=== PATIENT | female | born 1980 | race Caucasian/White ===

== ENCOUNTER 2017-08-18 19:00 | Inpatient (IN) | payer SELFPAY ==
[~2017-08-18] VITALS: Ht 165.1 cm; Wt 68.0 kg
[2017-08-18] MEDS ORDERED: LACTATED RINGERS 1,000 ML IV ONE (19:59)
[2017-08-18] MEDS ORDERED: PIPERACILLIN SODIUM/TAZOBACTAM 4.5 GM in NS (IVPB) 100 ML IV ONE (20:00)
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
[2017-08-18] MEDS ORDERED: IOHEXOL 350 MG/ML 100 ML (OMNIPAQUE 350) VIAL IV ONE (20:15)
[2017-08-18] MEDS ORDERED: NS 100 ML (IVPB) BAG IV ONE (20:15)
[2017-08-18 20:26] LABS: BASOPHILS # (AUTO) 0.1 10^3/uL (0.0-0.1); BASOPHILS % (AUTO) 1 % (0-10); EOSINOPHILS # (AUTO) 0.3 10^3/uL (0.0-0.3); EOSINOPHILS % (AUTO) 2 % (0-10); HEMATOCRIT 34 % (35-52); LYMPHOCYTES # (AUTO) 1.6 X 10^3 (1.0-4.0); LYMPHOCYTES % (AUTO) 9 % (12-44); MEAN CORPUSCULAR HEMOGLOBIN 31 PG (25-34); MEAN CORPUSCULAR HGB CONC 35 G/DL (32-36); MEAN CORPUSCULAR VOLUME 89 FL (80-99); MEAN PLATELET VOLUME 10.1 FL (7.4-10.4); MONOCYTES # (AUTO) 1.4 X 10^3 (0.0-1.0); MONOCYTES % (AUTO) 8 % (0-12); NEUTROPHILS # (AUTO) 13.8 X 10^3 (1.8-7.8); NEUTROPHILS % (AUTO) 81 % (42-75); PLATELET COUNT 288 10^3/uL (130-400); RED BLOOD COUNT 3.82 10^6/uL (4.35-5.85); RED CELL DISTRIBUTION WIDTH 13.5 % (10.0-14.5)
[2017-08-18 20:32] LABS: BILIRUBIN,URINE NEGATIVE (NEGATIVE); CLARITY,URINE CLEAR; COLOR,URINE YELLOW; GLUCOSE, URINE (UA) NEGATIVE (NEGATIVE); KETONES,URINE NEGATIVE (NEGATIVE); LEUKOCYTE ESTERASE ,URINE 1+ (NEGATIVE); NITRITE,URINE NEGATIVE (NEGATIVE); PH,URINE 8 (5-9); PROTEIN,URINE 1+ (NEGATIVE); UROBILINOGEN,URINE NORMAL (NORMAL)
[2017-08-18 20:36] LABS: INR 1.1 (0.8-1.4)
[2017-08-18 20:41] LABS: BACTERIA,URINE FEW /HPF; MAGNESIUM 1.6 MG/DL (1.8-2.4); PHOSPHORUS 2.3 MG/DL (2.3-4.7); RBC,URINE RARE /HPF
[2017-08-18 20:42] LABS: ALANINE AMINOTRANSFERASE 57 U/L (0-55); ALBUMIN 2.9 GM/DL (3.2-4.5); ALKALINE PHOSPHATASE 244 U/L (40-136); BILIRUBIN,TOTAL 0.3 MG/DL (0.1-1.0); BUN/CREATININE RATIO 10; CALCIUM 8.6 MG/DL (8.5-10.1); CARBON DIOXIDE 24 MMOL/L (21-32); CHLORIDE 106 MMOL/L (98-107); CREATININE SERUM 0.77 MG/DL (0.60-1.30); GFR ESTIMATED > 60; GLUCOSE 110 MG/DL (70-105); HCG,QUALITATIVE URINE NEGATIVE (NEGATIVE); POTASSIUM 3.7 MMOL/L (3.6-5.0); SODIUM 139 MMOL/L (135-145); TOTAL PROTEIN 5.9 GM/DL (6.4-8.2)
[2017-08-18 20:46] LABS: BAND NEUTROPHILS 15 %; BASOPHILS % (MANUAL) 0 %; EOSINOPHILS % (MANUAL) 1 %; LYMPHOCYTES % (MANUAL) 11 %; MONOCYTES % (MANUAL) 9 %; NEUTROPHILS % (MANUAL) 64 %; RBC MORPH NORMAL
[2017-08-18 20:53] LABS: BARBITURATE SCREEN URINE POSITIVE (NEGATIVE); CANNABINOID SCREEN, URINE POSITIVE (NEGATIVE); COCAINE SCREEN URINE POSITIVE (NEGATIVE)
[2017-08-18 20:54] LABS: AMPHETAMINE SCREEN, URINE NEGATIVE (NEGATIVE); BENZODIAZEPINES SCREEN URINE NEGATIVE (NEGATIVE); METHADONE STAT NEGATIVE (NEGATIVE); METHAMPHETAMINE SCREEN URINE S NEGATIVE (NEGATIVE); OPIATE SCREEN URINE NEGATIVE (NEGATIVE); OXYCODONE STAT NEGATIVE (NEGATIVE); PROPOXYPHENE STAT NEGATIVE (NEGATIVE); TRICYCLIC ANTIDEPRESSANTS SCRE NEGATIVE (NEGATIVE)
[2017-08-18] MEDS ORDERED: NS IV 500 ML 500 ML IV ONE (21:16)
--- NOTE | 2017-08-18 21:26 | Diagnostic Imaging Report ---
PROCEDURE: CT abdomen and pelvis with and without contrast. TECHNIQUE: Precontrast acquisitions were acquired through the abdomen and pelvis. Multiple contiguous axial images were obtained through the abdomen and pelvis after the administration of intravenous contrast. INDICATION: Anterior and posterior lower abdominal pain. CORRELATION STUDY: None FINDINGS: There is the presence of small to moderate bilateral pleural effusions, right greater than left. On the right, maximum thickness of nearly 3 cm. Associated atelectasis of the lung bases. Partial visualization of the bilateral breast implants. Heart size appears relatively normal. There is overall somewhat heterogeneous appearance about the liver parenchyma, nonspecific, could be some fatty infiltration versus edema. Borderline liver enlargement. Spleen, borderline prominent, as well. The bilateral adrenal glands, pancreas and abdominal aorta are unremarkable. Gallbladder is present. There is the presence of gallbladder wall thickening and edema. Biliary tree appears relatively unremarkable. Left kidney demonstrates nonobstructing left renal stone. While the distal ureter is not visualized, there is no evidence for overt hydronephrosis. There is a rather marked abnormal appearance about the right kidney which is enlarged and demonstrates multifocal areas of abnormal striated and diminished enhancement. This is most pronounced along the anterior superior pole but also involves portions of inferior pole, as well. Proximal collecting system appears symmetric to the right. The distal right ureter is not visualized but likely without significant obstruction. Gastrointestinal tract with moderate severity fecal retention. No definitive obstruction. There is the presence of pelvic fluid and slight haziness about the mesentery. The appendix is not definitely visualized, however, no findings to suggest acute appendicitis. Urinary bladder unremarkable. The uterus is relatively unremarkable. Some vascular engorgement noted around the uterus and cervix. IMPRESSION: 1. Marked abnormal appearance about the right kidney. Imaging features favor probable rather pronounced right pyelonephritis. No definitive obstructive uropathy. 2. Nonobstructing left renal stone. 3. Abnormal pericholecystic fluid with edematous changes of the gallbladder wall. This may be reactive owing to the adjacent presumed inflammatory/infectious changes of the right kidney. Cholecystitis is not excluded. 4. Bilateral pleural effusions of moderate size on the right, slightly smaller on the left. 5. Borderline hepatosplenomegaly. There may be some fatty infiltration versus edematous engorgement about the liver parenchyma. Dictated by: Dictated on workstation # [id number]
[2017-08-18] MEDS ORDERED: MAGNESIUM 1 GM/100 ML IVPB 100 ML IV ONE (21:30)
--- NOTE | 2017-08-18 21:51 | Diagnostic Imaging Report ---
INDICATION: Persistent shortness of air, fever, swelling.. TECHNIQUE: Two view chest at 9:22 PM CORRELATION STUDY: None FINDINGS: The heart size, mediastinal configuration and pulmonary vasculature are within normal limits. Associated atelectasis and/or infiltrate of the lung bases. Visualized osseous structures are unremarkable. IMPRESSION: 1. Borderline heart size. Bilateral perihilar infiltrates versus edema. Bilateral pleural effusions, right greater than left, with associated atelectasis and/or infiltrate of the lung bases. Dictated by: Dictated on workstation # [id number]
[2017-08-18 22:20] VITALS: BP 117/68
[2017-08-18] MEDS ORDERED: ONDANSETRON 4 MG/2 ML (SDV) Z0FRAN IV PRN (23:00)
[2017-08-18] MEDS: metroNIDAZOLE 500 MG/100 ML IVPB (PRE-MIX) IV SCH (23:10)
[2017-08-18] MEDS: 1/2 NS W/KCL 20 MEQ/L 1,000 ML IV SCH (23:10)
[2017-08-19] VITALS (7 sets, daily range): BP systolic 11–122; BP diastolic 59–87
[2017-08-19] MEDS: fentaNYL INJECTION 100 MCG/2 ML AMP IV PRN ×2 (00:21→05:31)
[2017-08-19] MEDS: PIPERACILLIN SODIUM/TAZOBACTAM 4.5 GM in NS (IVPB) 100 ML IV SCH ×3 (01:02→16:43)
[2017-08-19] MEDS: metroNIDAZOLE 500 MG/100 ML IVPB (PRE-MIX) IV SCH (05:31)
[2017-08-19] MEDS: 1/2 NS W/KCL 20 MEQ/L 1,000 ML IV SCH ×4 (05:31→23:40)
[2017-08-19 05:54] LABS: BASOPHILS # (AUTO) 0.1 10^3/uL (0.0-0.1); BASOPHILS % (AUTO) 1 % (0-10); EOSINOPHILS # (AUTO) 0.4 10^3/uL (0.0-0.3); EOSINOPHILS % (AUTO) 3 % (0-10); HEMATOCRIT 32 % (35-52); HEMOGLOBIN 11.1 G/DL (11.5-16.0); LYMPHOCYTES # (AUTO) 2.4 X 10^3 (1.0-4.0); LYMPHOCYTES % (AUTO) 19 % (12-44); MEAN CORPUSCULAR HEMOGLOBIN 31 PG (25-34); MEAN CORPUSCULAR HGB CONC 35 G/DL (32-36); MEAN CORPUSCULAR VOLUME 90 FL (80-99); MONOCYTES # (AUTO) 1.3 X 10^3 (0.0-1.0); MONOCYTES % (AUTO) 10 % (0-12); NEUTROPHILS # (AUTO) 8.6 X 10^3 (1.8-7.8); NEUTROPHILS % (AUTO) 67 % (42-75); PLATELET COUNT 270 10^3/uL (130-400); RED BLOOD COUNT 3.54 10^6/uL (4.35-5.85); RED CELL DISTRIBUTION WIDTH 13.5 % (10.0-14.5); WHITE BLOOD COUNT 12.8 10^3/uL (4.3-11.0)
[2017-08-19 06:13] LABS: ALANINE AMINOTRANSFERASE 43 U/L (0-55); ALBUMIN 2.4 GM/DL (3.2-4.5); ALKALINE PHOSPHATASE 200 U/L (40-136); BILIRUBIN,TOTAL 0.4 MG/DL (0.1-1.0); BUN/CREATININE RATIO 8; CALCIUM 7.9 MG/DL (8.5-10.1); CARBON DIOXIDE 22 MMOL/L (21-32); CHLORIDE 107 MMOL/L (98-107); CREATININE SERUM 0.74 MG/DL (0.60-1.30); GFR ESTIMATED > 60; GLUCOSE 95 MG/DL (70-105); MAGNESIUM 1.6 MG/DL (1.8-2.4); POTASSIUM 4.4 MMOL/L (3.6-5.0); SODIUM 138 MMOL/L (135-145)
[2017-08-19] MEDS ORDERED: INFLUENZA TRIvalent 2017-2018 0.5 ML/45 MCG SYR IM ONE (07:15)
--- NOTE | 2017-08-19 09:13 | Diagnostic Imaging Report ---
PROCEDURE: US abdomen complete. TECHNIQUE: Multiple real-time grayscale images were obtained over the abdomen in various projections. INDICATION: Right upper quadrant pain. The liver is normal in size at 17.7 cm. No discrete liver mass is identified. The portal vein is patent and demonstrates normal direction of flow. The gallbladder is without stones or sludge, however, gallbladder wall is thickened up to 7 mm. Minimal pericholecystic fluid is present. No biliary ductal dilatation is identified. Pancreas is unremarkable. Spleen is normal in size. Aorta and IVC are unremarkable. The right kidney is 13.8 cm in length the left kidney 11.3 cm in length. There is an approximately 12 mm cyst in the midportion of the right kidney. Right renal cortex does appear to be slightly echogenic. No calculi or hydronephrosis is seen. Note is made of bilateral pleural effusions. No ascites is seen. IMPRESSION: 1. Bilateral pleural effusions. 2. Thickwalled gallbladder without evidence of stones or sludge. Acalculous cholecystitis cannot be entirely excluded. Other etiologies of gallbladder wall thickening such as hepatic dysfunction could produce this appearance. 3. Small right renal cyst. There is also increased cortical echogenicity of the right kidney, perhaps owing to medical renal disease. Dictated by: Dictated on workstation # [id number]
--- NOTE | 2017-08-19 09:38 | History & Physical-Hospitalist ---
HPI History of Present Illness: HPI/Chief Complaint Pt is a 37yoCF who was recently admitted to a hospital in [place] for bacteremia from a UTI presented to the ER with continued complaints of not feeling well. She reports she was abruptly discharged from the hospital there after an incident with a staff member. She was prescribed Cipro on discharge () and drove state to [place] for evaluation in the ER. She continued to have fevers and abd pain on the drive. She also complains of a cough that is non productive. Total her illness has been going on for roughly 2 weeks. When asked to point to her pain she points to her RUQ but states it is all over. It is worse with BM and improved only by pain medicine. Source: patient Date Seen 08/19/17 Time Seen by Provider: 09:00 Attending Physician Howie Mtz MD PCP No,Local Physician Referring Physician Date of Admission Aug 18, 2017 at 9:57 pm Home Medications & Allergies Home Medications Reviewed patient Home Medication Reconciliation Form Allergies Allergies Coded Allergies No Known Drug Allergies (Unverified08/18/17) Past Ptyygai-Llaudn-Feahtz Hx Patient Social History Marrital Status: single Alcohol Use: Denies Use Recreational Drug Use: Yes (marijuana laced with cocaine) Smoking Status: Current Everyday Smoker Cigaretts per day: 20 Type Used: Cigarettes Physical Abuse Screen: No Sexual Abuse: No Recent Foreign Travel: No Contact w/other who traveled: No Recent Hopitalizations: Yes (dc'd 08/17/17 for sepsis) Recent Infectious Disease Expo: No Seasonal Allergies Seasonal Allergies: No Surgeries Yes Orthopedic (tib/fib fracture) Respiratory Yes ("bronchitis") Currently Using CPAP: No Currently Using BIPAP: No Cardiovascular No Neurological No Reproductive System Last Menstrual Period: Aug 10, 2017 Genitourinary Yes Kidney Stones Gastrointestinal Yes Gall Bladder Disease (not formally diagnosed- reported by patient) Musculoskeletal Yes Fractures Endocrine History of Endocrine Disorders: No HEENT History of HEENT Disorders: No Cancer No Psychosocial History of Psychiatric Problem: No Integumentary History of Skin or Integumenta: No Family Medical History Family Hx: Alcoholism 19 FATHER G8 SISTER Asthma 19 FATHER Hypertension 19 FATHER Respiratory disorder 19 FATHER Review of Systems Constitutional: fever, weakness EENTM: No blurred vision, No double vision Respiratory: cough, No hemoptysis, No phlegm, No short of breath Gastrointestinal: abdominal pain (RUQ), No constipation, No nausea, No vomiting Genitourinary: decreased output (while admitted in [facility]- resolved with Lasix) , No dysuria, No hematuria, No hesitancy, No incontinence Musculoskeletal: no symptoms reported Skin: no symptoms reported Psychiatric/Neurological: No Symptoms Reported Physical Exam Physical Exam Vital Signs Vital Signs - First Documented 08/18/17 08/18/17 19:15 22:15 Temp 99.7 Pulse 134 Resp 20 B/P (MAP) 143/106 (118) Pulse Ox 98 O2 Delivery Room Air Capillary Refill : Less Than 3 Seconds General Appearance: No Apparent Distress, WD/WN HEENT: PERRL/EOMI, Moist Mucous Membranes, No Scleral Icterus (L), No Scleral Icterus (R) Respiratory: Lungs Clear, No Respiratory Distress Cardiovascular: Regular Rate, Rhythm, No Murmur Gastrointestinal: Normal Bowel Sounds, Soft, No Distended, No Guarding, No Rebound, Tenderness Extremity: Normal Capillary Refill, No Calf Tenderness Neurologic/Psychiatric: Alert, Oriented x3, Normal Mood/Affect Skin: Normal Color, Warm/Dry Results Results/Procedures Lab Laboratory Tests 08/18/17 20:15 08/19/17 05:47 Radiology Date of Exam: 08/18/17 CT ABDOMEN/PELVIS W WO IMPRESSION: 1. Marked abnormal appearance about the right kidney. Imaging features favor probable rather pronounced right pyelonephritis. No definitive obstructive uropathy. 2. Nonobstructing left renal stone. 3. Abnormal pericholecystic fluid with edematous changes of the gallbladder wall. This may be reactive owing to the adjacent presumed inflammatory/infectious changes of the right kidney. Cholecystitis is not excluded. 4. Bilateral pleural effusions of moderate size on the right, slightly smaller on the left. 5. Borderline hepatosplenomegaly. There may be some fatty infiltration versus edematous engorgement about the liver parenchyma. Assessment/Plan Admission Diagnosis Severe Sepsis Diagnosis/Problems Diagnosis/Problems (1) Sepsis Status: Acute Assessment & Plan: Due to either pyelonephritis or cholecystitis Not hypotensive- did not necessitate 30cc/kg bolus On Zosyn/Flagyl Blood cultures obtained in ER Urine culture pending Will get sputum culture if cough turns productive given pleural effusions Qualifiers: Qualified Codes: A41.9 - Sepsis, unspecified organism (2) Cholecystitis Status: Acute Assessment & Plan: Surgery consulted, appreciate recs RUQ usg pending but discussed with Dr Lowe and concerning for acalculous cholecystitis He will discuss with Radiology about if HIDA scan is beneficial May need operative intervention pending results (3) Pyelonephritis Assessment & Plan: Abx as above Monitor I/Os stone noted but nonobstructive Has history of recurrent stones, will consult Urology (4) Pleural effusion, bilateral Status: Acute Assessment & Plan: Nonproductive cough Flu negative On room air Continue to monitor (5) Cocaine abuse Status: Acute Assessment & Plan: Reportedly inadvertent intake with marijuana Discussed risks of cocaine, recommended avoiding (6) Hypomagnesemia Status: Acute Assessment & Plan: Will replace (7) Tobacco abuse Assessment & Plan: Recommended cessation (8) Prophylactic measure Assessment & Plan: 1/2NS +20KCL at 100cc/hr SCDs Hold lovenox for possible OR NPO Clinical Quality Measures DVT/VTE Risk/Contraindication: Risk Factor Score Per Nursin RFS Level Per Nursing on Admit: 4+=Very High IVONNE BLACKBURN MD Aug 19, 2017 9:38 am
--- NOTE | 2017-08-19 10:34 | Consultation ---
History of Present Illness History of Present Illness Patient Consulted On(justin/time) 08/19/17 10:33 Date Seen by Provider: Aug 19, 2017 Time Seen by Provider: 09:00 History of Present Illness Consult by Dr. Mtz for abdominal pain, gallbladder wall thickening. Patient is a 37 year old female who has not felt well for a couple weeks. She went to [place] and was hospitalized on Aug 14 and discharged on the . Patient had sepsis, MONCHO, pyelonephritis, UTI at that time she reports. She was having high fevers. Patient states that she had smoked some weed in [place] and must have had some cocaine in it for she does not admit regular use. Patient was discharged from hospital and she states she and her fiance drove straight through to [place]. She was continuing to have fever and abdominal pain. She states her abdominal pain is all over and most intense along right side. Patient has had fever. She has had a cough which is nonproductive. CT scan demonstrating 1. Marked abnormal appearance about the right kidney. Imaging features favor probable rather pronounced right pyelonephritis. No definitive obstructive uropathy. 2. Nonobstructing left renal stone. 3. Abnormal pericholecystic fluid with edematous changes of the gallbladder wall. This may be reactive owing to the adjacent presumed inflammatory/infectious changes of the right kidney. Cholecystitis is not excluded. 4. Bilateral pleural effusions of moderate size on the right, slightly smaller on the left. 5. Borderline hepatosplenomegaly. There may be some fatty infiltration versus edematous engorgement about the liver parenchyma. Ultrasound was performed demonstratin. Bilateral pleural effusions. 2. Thickwalled gallbladder without evidence of stones or sludge. Acalculous cholecystitis cannot be entirely excluded. Other etiologies of gallbladder wall thickening such as hepatic dysfunction could produce this appearance. 3. Small right renal cyst. There is also increased cortical echogenicity of the right kidney, perhaps owing to medical renal disease. Allergies and Home Medications Allergies Coded Allergies: No Known Drug Allergies (Unverified , 08/18/17) Home Medications No Active Prescriptions or Reported Meds Past Gliixua-Buacrt-Qvbssc Hx Patient Social History Alcohol Use: Denies Use Recreational Drug Use: Yes (marijuana laced with cocaine) Smoking Status: Current Everyday Smoker Cigarettes Per Day: 20 Type Used: Cigarettes Recent Foreign Travel: No Contact w/Someone Who Travel: No Recent Infectious Disease Expo: No Recent Hopitalizations: Yes (dc'd 08/17/17 for sepsis) Physical Abuse Screen: No Sexual Abuse: No Seasonal Allergies Seasonal Allergies: No Surgeries History of Surgeries: Yes Surgeries: Orthopedic (tib/fib fracture) Respiratory History of Respiratory Disorde: Yes ("bronchitis") Respiratory Disorders: Chronic Bronchitis Cardiovascular History of Cardiac Disorders: No Neurological History of Neurological Disord: No Genitourinary History of Genitourinary Disor: Yes Genitourinary Disorders: Kidney Stones Gastrointestinal History of Gastrointestinal Di: Yes Gastrointestinal Disorders: Gall Bladder Disease (not formally diagnosed- reported by patient) Musculoskeletal History of Musculoskeletal Dis: Yes Musculoskeletal Disorders: Fractures Endocrine History of Endocrine Disorders: No HEENT History of HEENT Disorders: No Cancer History of Cancer: No Psychosocial History of Psychiatric Problem: No Integumentary History of Skin or Integumenta: No Family Medical History Significant Family History: No Pertinent Family Hx Family Medial History: Alcoholism 19 FATHER G8 SISTER Asthma 19 FATHER Hypertension 19 FATHER Respiratory disorder 19 FATHER Review of Systems-General Constitutional: see HPI, fever EENTM: no symptoms reported Respiratory: see HPI, cough Cardiovascular: no symptoms reported Gastrointestinal: see HPI, abdominal pain Genitourinary: see HPI Musculoskeletal: no symptoms reported Skin: no symptoms reported Psychiatric/Neurological: No Symptoms Reported Physical Exam-General Problems Physical Exam Vital Signs Vital Signs - First Documented 08/18/17 08/18/17 19:15 22:15 Temp 99.7 Pulse 134 Resp 20 B/P (MAP) 143/106 (118) Pulse Ox 98 O2 Delivery Room Air Capillary Refill : Less Than 3 Seconds General Appearance: no apparent distress HEENT: PERRL/EOMI, normal ENT inspection Neck: non-tender, full range of motion, supple, normal inspection Respiratory: no respiratory distress, no accessory muscle use Cardiovascular: regular rate, rhythm Gastrointestinal: soft (tenderness diffusely but more along right side), distended (minimal) Rectal: deferred Back: normal inspection Extremities: normal range of motion, non-tender 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, no motor/sensory deficits, alert, oriented x 3 Skin: warm/dry Lymphatic: no adenopathy Data Review Labs Laboratory Tests 08/18/17 20:15: White Blood Count 17.0H, Red Blood Count 3.82L, Hemoglobin 12.0, Hematocrit 34L , Mean Corpuscular Volume 89, Mean Corpuscular Hemoglobin 31, Mean Corpuscular Hemoglobin Concent 35, Red Cell Distribution Width 13.5, Platelet Count 288, Mean Platelet Volume 10.1, Neutrophils (%) (Auto) 81H, Lymphocytes (%) (Auto) 9L , Monocytes (%) (Auto) 8, Eosinophils (%) (Auto) 2, Basophils (%) (Auto) 1, Neutrophils # (Auto) 13.8H, Lymphocytes # (Auto) 1.6, Monocytes # (Auto) 1.4H, Eosinophils # (Auto) 0.3, Basophils # (Auto) 0.1, Neutrophils % (Manual) 64, Lymphocytes % (Manual) 11, Monocytes % (Manual) 9, Eosinophils % (Manual) 1, Basophils % (Manual) 0, Band Neutrophils 15, Blood Morphology Comment NORMAL, Prothrombin Time 14.0, INR Comment 1.1, Activated Partial Thromboplast Time 38H , Urine Color YELLOW, Urine Clarity CLEAR, Urine pH 8, Urine Specific [place] 1.010L, Urine Protein 1+H, Urine Glucose (UA) NEGATIVE, Urine Ketones NEGATIVE, Urine Nitrite NEGATIVE, Urine Bilirubin NEGATIVE, Urine Urobilinogen NORMAL, Urine Leukocyte Esterase 1+H, Urine RBC (Auto) NEGATIVE, Urine RBC RARE, Urine WBC 5-10H, Urine Squamous Epithelial Cells 5-10, Urine Crystals NONE, Urine Bacteria FEWH, Urine Casts NONE, Urine Mucus NEGATIVE, Urine Culture Indicated YES, Urine Test NEGATIVE, Sodium Level 139, Potassium Level 3.7, Chloride Level 106, Carbon Dioxide Level 24, Anion Gap 9, Blood Urea Nitrogen 8 , Creatinine 0.77, Estimat Glomerular Filtration Rate > 60, BUN/Creatinine Ratio 10, Glucose Level 110H, Lactic Acid Level 1.22, Calcium Level 8.6, Phosphorus Level 2.3, Magnesium Level 1.6L, Total Bilirubin 0.3, Aspartate Amino Transf (AST/SGOT) 46H, Alanine Aminotransferase (ALT/SGPT) 57H, Alkaline Phosphatase 244H, Troponin I < 0.30, C-Reactive Protein High Sensitivity 21.46H , Total Protein 5.9L, Albumin 2.9L, Urine Opiates Screen NEGATIVE, Urine Oxycodone Screen NEGATIVE, Urine Methadone Screen NEGATIVE, Urine Propoxyphene Screen NEGATIVE, Urine Barbiturates Screen POSITIVEH, Ur Tricyclic Antidepressants Screen NEGATIVE, Urine Phencyclidine Screen NEGATIVE, Urine Amphetamines Screen NEGATIVE, Urine Methamphetamines Screen NEGATIVE, Urine Benzodiazepines Screen NEGATIVE, Urine Cocaine Screen POSITIVEH, Urine Cannabinoids Screen POSITIVEH, Smear Scan 08/19/17 05:47: White Blood Count 12.8H, Red Blood Count 3.54L, Hemoglobin 11.1L, Hematocrit 32L , Mean Corpuscular Volume 90, Mean Corpuscular Hemoglobin 31, Mean Corpuscular Hemoglobin Concent 35, Red Cell Distribution Width 13.5, Platelet Count 270, Mean Platelet Volume 10.0, Neutrophils (%) (Auto) 67, Lymphocytes (%) (Auto) 19 , Monocytes (%) (Auto) 10, Eosinophils (%) (Auto) 3, Basophils (%) (Auto) 1, Neutrophils # (Auto) 8.6H, Lymphocytes # (Auto) 2.4, Monocytes # (Auto) 1.3H, Eosinophils # (Auto) 0.4H, Basophils # (Auto) 0.1, Sodium Level 138, Potassium Level 4.4, Chloride Level 107, Carbon Dioxide Level 22, Anion Gap 9, Blood Urea Nitrogen 6L, Creatinine 0.74, Estimat Glomerular Filtration Rate > 60, BUN/ Creatinine Ratio 8, Glucose Level 95, Calcium Level 7.9L, Magnesium Level 1.6L, Total Bilirubin 0.4, Aspartate Amino Transf (AST/SGOT) 27, Alanine Aminotransferase (ALT/SGPT) 43, Alkaline Phosphatase 200H, Total Protein 5.0L, Albumin 2.4L Microbiology 08/18/17 Influenza Types A,B Antigen (DEVI) - Final, Complete Assessment/Plan Assessment/Plan Assessment/Plan Sepsis, Pyelonephritis right, UTI, gallbladder wall thickening reactive vs cholecystitis, b/l pleural effusions, cocaine and marijuana use, recent hospitalization with studies this far the gallbladder wall is thickened but difficult to tell if this is reactive or acalculous cholecystitis. Will obtain a HIDA scan, if cystic duct is patent this is more likely reactive. If cystic duct is not patent then would be acalculous cholecystitis and would need cholecystectomy. Patient on Zosyn and Flagyl which would cover pyelonephritis and gallbladder disease. Repeat labs in am NPO IV hydration Clinical Quality Measures DVT/VTE Risk/Contraindication: Risk Factor Score Per Nursin RFS Level Per Nursing on Admit: 4+=Very High BRIJESH SANTOS DO Aug 19, 2017 10:34
[2017-08-19] MEDS: MAGNESIUM 1 GM/100 ML IVPB 100 ML IV SCH ×2 (10:42→11:47)
[2017-08-19] MEDS: CATHETER FLUSH 10 ML SYR IV PRN (12:53)
--- NOTE | 2017-08-19 14:45 | Diagnostic Imaging Report ---
INDICATION: Abdominal pain and abnormal ultrasound demonstrating gallbladder wall thickening. TECHNIQUE: The patient was administered 5.4 mCi of technetium 99m Choletec and imaging over the abdomen was performed. FINDINGS: There is homogeneous uptake of activity by the liver with prompt excretion of activity into the common duct. There is passage of activity into the gallbladder and small bowel as well. There is mild curvilinear uptake in the left upper quadrant consistent with gastric activity. This is consistent with bile reflux. IMPRESSION: 1. No evidence of cystic duct or common bile duct obstruction. 2. Bile reflux. Dictated by: Dictated on workstation # [id number]
--- NOTE | 2017-08-19 15:43 | CONSULTATION REPORT ---
DATE OF SERVICE: 08/19/2017 ATTENDING PHYSICIAN: Jose Carrizales MD. SUMMARY: A 37-year-old white lady admitted with a fever and right-sided abdominal pain. A CAT scan revealed a small nonobstructing stone on the left side and what looks like possible right pyelonephritis; however, the symptoms are more on the right upper quadrant than the flank. She is tender more in the right upper quadrant than the flank with a positive Christianson sign. Gallbladder ultrasound was questionable. Dr. Lowe has been consulted and ordered a scan, which is pending to manage accordingly. Her white count has improved. Her vital signs are stable. She is afebrile. IMPRESSION: Fever, right side abdominal pain, pyelonephritis and/or cholecystitis. PLAN: Await decision of Dr. Lowe for the kidney. Continue present management would be sufficient. 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
[2017-08-19] MEDS ORDERED: ACETAMINOPHEN 500 MG TAB (TYLENOL) PO PRN (16:45)
[2017-08-19] MEDS ORDERED: HYDROcodone/APAP 5 MG/325 MG (LORTAB) TAB PO PRN (16:45)
[2017-08-20] MEDS: PIPERACILLIN SODIUM/TAZOBACTAM 4.5 GM in NS (IVPB) 100 ML IV SCH ×2 (01:13→10:13)
[2017-08-20 06:30] LABS: BASOPHILS # (AUTO) 0.1 10^3/uL (0.0-0.1); BASOPHILS % (AUTO) 1 % (0-10); EOSINOPHILS # (AUTO) 0.5 10^3/uL (0.0-0.3); EOSINOPHILS % (AUTO) 4 % (0-10); HEMATOCRIT 33 % (35-52); HEMOGLOBIN 11.3 G/DL (11.5-16.0); LYMPHOCYTES # (AUTO) 2.7 X 10^3 (1.0-4.0); LYMPHOCYTES % (AUTO) 23 % (12-44); MEAN CORPUSCULAR HEMOGLOBIN 31 PG (25-34); MEAN CORPUSCULAR HGB CONC 34 G/DL (32-36); MEAN CORPUSCULAR VOLUME 91 FL (80-99); MEAN PLATELET VOLUME 9.7 FL (7.4-10.4); MONOCYTES % (AUTO) 9 % (0-12); NEUTROPHILS # (AUTO) 7.4 X 10^3 (1.8-7.8); NEUTROPHILS % (AUTO) 63 % (42-75); PLATELET COUNT 339 10^3/uL (130-400); RED BLOOD COUNT 3.61 10^6/uL (4.35-5.85); RED CELL DISTRIBUTION WIDTH 13.7 % (10.0-14.5); WHITE BLOOD COUNT 11.7 10^3/uL (4.3-11.0)
[2017-08-20 06:56] LABS: ALANINE AMINOTRANSFERASE 41 U/L (0-55); ALBUMIN 2.5 GM/DL (3.2-4.5); ALKALINE PHOSPHATASE 191 U/L (40-136); BILIRUBIN,TOTAL 0.3 MG/DL (0.1-1.0); BUN/CREATININE RATIO 8; CALCIUM 8.2 MG/DL (8.5-10.1); CARBON DIOXIDE 23 MMOL/L (21-32); CHLORIDE 109 MMOL/L (98-107); CREATININE SERUM 0.79 MG/DL (0.60-1.30); GFR ESTIMATED > 60; GLUCOSE 95 MG/DL (70-105); POTASSIUM 4.7 MMOL/L (3.6-5.0); SODIUM 141 MMOL/L (135-145); TOTAL PROTEIN 5.2 GM/DL (6.4-8.2)
[2017-08-20 08:00] VITALS: BP 110/66
--- NOTE | 2017-08-20 09:31 | Progress Note-Hospitalist ---
Subjective HPI/CC On Admission Date Seen by Provider: Aug 20, 2017 Time Seen by Provider: 09:05 Pt is a 37yoCF who was recently admitted to a hospital in [place] for bacteremia from a UTI presented to the ER with continued complaints of not feeling well. She reports she was abruptly discharged from the hospital there after an incident with a staff member. She was prescribed Cipro on discharge () and drove state to [place] for evaluation in the ER. She continued to have fevers and abd pain on the drive. She also complains of a cough that is non productive. Total her illness has been going on for roughly 2 weeks. When asked to point to her pain she points to her RUQ but states it is all over. It is worse with BM and improved only by pain medicine. Subjective/Events-last exam Pt reports pain improved. Is NPO currently but would like to eat. Denies any pelvic pain or vaginal discharge. Still some abd pain. Objective Exam Vital Signs Vital Signs Date Time Temp Pulse Resp B/P (MAP) Pulse Ox O2 Delivery O2 Flow Rate FiO2 08/18/17 19:15 99.7 134 20 143/106 (118) 08/18/17 22:15 98 Room Air Capillary Refill : Less Than 3 SecondsLess Than 3 Seconds General Appearance: No Apparent Distress, WD/WN Respiratory: Lungs Clear, No Accessory Muscle Use, No Respiratory Distress Cardiovascular: Regular Rate, Rhythm, No Murmur Gastrointestinal: Normal Bowel Sounds, Soft, Tenderness (mildy tender- diffuse) Neurologic/Psychiatric: Alert, Oriented x3 Results/Procedures Lab Laboratory Tests 08/20/17 06:15 Assessment/Plan Assessment and Plan Assess & Plan/Chief Complaint Sepsis Diagnosis/Problems Diagnosis/Problems (1) Sepsis Status: Acute Assessment & Plan: Due to likely pyelonephritis On Zosyn/Flagyl Blood cultures no growth Will request records from OSH Urine culture no growth Qualifiers: Qualified Codes: A41.9 - Sepsis, unspecified organism (2) Cholecystitis Status: Acute Assessment & Plan: Surgery consulted, appreciate recs HIDA shows patent duct (3) Pyelonephritis Assessment & Plan: Abx as above Monitor I/Os stone noted but nonobstructive Has history of recurrent stones Urology consulted- appreciate recs (4) Pleural effusion, bilateral Status: Acute Assessment & Plan: Nonproductive cough Flu negative On room air Continue to monitor (5) Cocaine abuse Status: Acute Assessment & Plan: Reportedly inadvertent intake with marijuana Discussed risks of cocaine, recommended avoiding (6) Hypomagnesemia Status: Acute Assessment & Plan: Replaced (7) Tobacco abuse Assessment & Plan: Recommended cessation (8) Prophylactic measure Assessment & Plan: Saline lock SCDs Hold lovenox for possible OR- start today if not going to OT NPO- will start diet once surgery sees IVONNE BLACKBURN MD Aug 20, 2017 9:31 am
[2017-08-20] MEDS ORDERED: ENOXAPARIN 40 MG/0.4 ML (LOVENOX) SYR SC SCH (09:45)
[2017-08-20] MEDS: LACTOBACILLUS Acidoph/Bulgar (LACTINEX/FLORANEX) TAB PO SCH ×2 (10:12→16:32)
--- NOTE | 2017-08-20 12:03 | Progress Note-Urology ---
Progress Note-Urology Progress Notes/Assess & Plan Progress/Assessment & Plan FEELING AND DOING MUCH BETTER. WE WILL SEE PRN Final Diagnosis RT PYELONEPHRITIS ROXANNA LUONG MD Aug 20, 2017 12:02
[2017-08-20] MEDS: ceFAZolin INJECTION 1,000 MG in NS (IVPB) 50 ML IV SCH ×2 (14:17→22:06)
[2017-08-20 16:00] VITALS: BP 129/68
--- NOTE | 2017-08-20 16:19 | Progress Note ---
Subjective Date Seen by Provider: Aug 20, 2017 Time Seen by Provider: 09:30 Subjective/Events-last exam Patient states she's feeling much better. She was tolerating diet yesterday evening and wants food now. She states really isn't having any pain in her abdomen unless she really pushed in on it and its not specific more generalized. She denies any fever sweats chills shortness of breath or chest pain at this time. Labs improving. HIDA scan demonstrating patent cystic duct. Objective Exam Vital Signs Date Time Temp Pulse Resp B/P (MAP) Pulse Ox O2 Delivery O2 Flow Rate FiO2 08/20/17 08:00 99.2 70 24 110/66 (81) 97 Room Air 08/20/17 07:57 Room Air 08/19/17 23:59 98.4 76 18 116/59 (78) 97 Room Air 08/19/17 20:00 99.1 66 20 121/69 (86) 96 Room Air I & O 08/20/17 07:00 Intake Total 2220 ml Output Total 4400 ml Balance -2180 ml Capillary Refill : Less Than 3 SecondsLess Than 3 Seconds General Appearance: No Apparent Distress, WD/WN HEENT: PERRL/EOMI, Moist Mucous Membranes, No Scleral Icterus (L), No Scleral Icterus (R) Neck: Full Range of Motion, Normal Inspection, Non Tender, Supple Respiratory: Lungs Clear, No Accessory Muscle Use, No Respiratory Distress Cardiovascular: Regular Rate, Rhythm, No Murmur Gastrointestinal: soft (no significant tenderness with palpation, no palpable masses.) Extremity: Normal Capillary Refill, No Calf Tenderness Neurologic/Psychiatric: Alert, Oriented x3 Skin: Normal Color, Warm/Dry Lymphatic: No Adenopathy Results Lab Laboratory Tests 08/20/17 06:15: White Blood Count 11.7H, Red Blood Count 3.61L, Hemoglobin 11.3L, Hematocrit 33L , Mean Corpuscular Volume 91, Mean Corpuscular Hemoglobin 31, Mean Corpuscular Hemoglobin Concent 34, Red Cell Distribution Width 13.7, Platelet Count 339, Mean Platelet Volume 9.7, Neutrophils (%) (Auto) 63, Lymphocytes (%) (Auto) 23, Monocytes (%) (Auto) 9, Eosinophils (%) (Auto) 4, Basophils (%) (Auto) 1, Neutrophils # (Auto) 7.4, Lymphocytes # (Auto) 2.7, Monocytes # (Auto) 1.0, Eosinophils # (Auto) 0.5H, Basophils # (Auto) 0.1, Sodium Level 141, Potassium Level 4.7, Chloride Level 109H, Carbon Dioxide Level 23, Anion Gap 9, Blood Urea Nitrogen 6L, Creatinine 0.79, Estimat Glomerular Filtration Rate > 60, BUN/ Creatinine Ratio 8, Glucose Level 95, Calcium Level 8.2L, Total Bilirubin 0.3, Aspartate Amino Transf (AST/SGOT) 30, Alanine Aminotransferase (ALT/SGPT) 41, Alkaline Phosphatase 191H, Total Protein 5.2L, Albumin 2.5L Microbiology 08/18/17 Blood Culture - Preliminary, Resulted No growth 08/18/17 Influenza Types A,B Antigen (DEVI) - Final, Complete 08/18/17 Urine Culture - Final, Complete NO GROWTH Assessment/Plan Assessment/Plan Assessment/Plan Sepsis, Pyelonephritis right, UTI, gallbladder wall thickening reactive vs cholecystitis, b/l pleural effusions, cocaine and marijuana use, recent hospitalization cystic duct is patent so I feel this is more reactive and she is feeling better , with labs improving. no surgical intervention at this time will follow continue current medical management. Clinical Quality Measures DVT/VTE Risk/Contraindication: Risk Factor Score Per Nursin RFS Level Per Nursing on Admit: 4+=Very High BRIJESH SANTOS DO Aug 20, 2017 16:19
[2017-08-20] MEDS ORDERED: metroNIDAZOLE 500 MG (FLAGYL) TAB PO SCH (21:00)
[2017-08-20] MEDS: CATHETER FLUSH 10 ML SYR IV PRN (22:06)
[2017-08-20 23:07] VITALS: BP 119/74
[2017-08-21] MEDS: ceFAZolin INJECTION 1,000 MG in NS (IVPB) 50 ML IV SCH (05:39)
[2017-08-21] MEDS: CATHETER FLUSH 10 ML SYR IV PRN (05:39)
[2017-08-21] MEDS: LACTOBACILLUS Acidoph/Bulgar (LACTINEX/FLORANEX) TAB PO SCH (05:39)
[2017-08-21] MEDS ORDERED: ACID1TAB PO (07:31)
[2017-08-21] MEDS ORDERED: CEPH-507 PO (07:31)
--- NOTE | 2017-08-21 07:34 | Discharge Inst-Simple/Standard ---
Discharge Inst-Standard Discharge Medications New, Converted or Re-Newed RX: Call to Patients Pharmacy Patient Instructions/Follow Up Plan of Care/Instructions/FU: Please take your medications as written. It is important to complete your antibiotic prescription even if you are feeling better to prevent recurrence of infection. If your symptoms return or worsen please seek evaluation. Please follow up with your PCP in 1 week. Activity as Tolerated: Yes Discharge Diet: No Restrictions Return to The Hospital For: Worsening abdominal pain, inability to keep fluids down, fever, or if you feel you are getting worse. IVONNE BLACKBURN MD Aug 21, 2017 7:34 am
--- NOTE | 2017-08-21 07:41 | Discharge Summary-Hospitalist ---
Diagnosis/Chief Complaint Date of Admission Aug 18, 2017 at 9:57 pm Date of Discharge Admission Diagnosis Severe Sepsis Discharge Diagnosis Sepsis (1) Sepsis Status: Acute Assessment & Plan: Due to likely pyelonephritis Blood cultures no growth here Cultures received from OSH- e coli in urine and blood Sensitive to cephalosporins so deescalated Will transition to keflex to complete course as outpatient Urine culture no growth here (2) Cholecystitis Status: Acute Assessment & Plan: Surgery consulted, appreciate recs HIDA shows patent duct (3) Pyelonephritis Assessment & Plan: Abx as above Monitor I/Os stone noted but nonobstructive Has history of recurrent stones Urology consulted- appreciate recs (4) Pleural effusion, bilateral Status: Acute Assessment & Plan: Nonproductive cough Flu negative On room air Continue to monitor (5) Cocaine abuse Status: Acute Assessment & Plan: Reportedly inadvertent intake with marijuana Discussed risks of cocaine, recommended avoiding (6) Hypomagnesemia Status: Acute Assessment & Plan: Replaced (7) Tobacco abuse Assessment & Plan: Recommended cessation (8) Prophylactic measure Assessment & Plan: Saline lock Lovenox Reg diet Discharge Summary Consultations Dr Lowe- Surgery Dr Garza- Urology Discharge Physical Examination Allergies: Coded Allergies: No Known Drug Allergies (Unverified , 08/18/17) Vitals & I&Os Vital Signs Date Time Temp Pulse Resp B/P (MAP) Pulse Ox O2 Delivery O2 Flow Rate FiO2 08/20/17 23:07 98.7 59 20 119/74 (89) 97 Room Air Hospital Course Pt is a 37yoCF who was admitted for sepsis due to pyelonephritis 1 day after discharge from OSH in [place] for bacteremia. She was treated with broad spectrum antibiotics until cultures were available. CT Abd/Pelvis showed right sided pyelonephritis and an edematous gallbladder. Surgery was consulted and she underwent RUQ usg and HIDA scan which revealed a patent duct and likely secondary inflammation of gallbladder from pyelonephritis. Urology was consulted given nonobstructive stone and history of recurrent stones. She improved with antibiotics and records from OSH showed she was bacteremic with e coli that was sensitive to cephalosporins. She was transitioned to appropriate antibiotics and continued to improve. She was feeling well and requesting discharge today. She was discharged to home in stable condition. Labs (last 24 hrs) Microbiology 08/18/17 Blood Culture - Preliminary, Resulted No growth 08/18/17 Influenza Types A,B Antigen (DEVI) - Final, Complete 08/18/17 Urine Culture - Final, Complete NO GROWTH Discharge Home Medications: Active Scripts Active Keflex (Cephalexin) 500 Mg Capsule 500 Mg PO BID start tonight Floranex Tablet (L. Acidophilus/Bulgaricus) 1 Each Tablet 1 Tab.chew PO AC Instructions to patient/family Please see electronic discharge instructions given to patient. Clinical Quality Measures DVT/VTE Risk/Contraindication: Risk Factor Score Per Nursin RFS Level Per Nursing on Admit: 4+=Very High Problem Qualifiers (1) Sepsis: Sepsis type: sepsis due to unspecified organism Qualified Codes: A41.9 - Sepsis, unspecified organism IVONNE BLACKBURN MD Aug 21, 2017 7:41 am
[2017-08-21 08:00] VITALS: BP 135/78
== END 2017-08-21 09:00 | disposition home or self-care (01) | DRG 872 ==
LOC: ER 19:03 → 4TH 21:57
PROVIDERS: ADMIT Internal Medicine; ATTEND Internal Medicine
DX: A41.9 Sepsis, unspecified organism (principal); N39.0 Urinary tract infection, site not specified; J90 Pleural effusion, not elsewhere classified; K81.0 Acute cholecystitis; E83.42 Hypomagnesemia; N20.0 Calculus of kidney; J42 Unspecified chronic bronchitis; F12.10 Cannabis abuse, uncomplicated; F14.10 Cocaine abuse, uncomplicated; F17.210 Nicotine dependence, cigarettes, uncomplicated
CPT/HCPCS: 36415; 71046; 74178; 76700; 78226; 80053; 80306; 81000; 83605; 83735; 84100; 84484; 84703; 85007; 85025; 85027; 85610; 85730; 86141; 87040; 87088; 87804; 93005; 96361; 96365; 96375